=== PATIENT | male | born 1955 | race Caucasian/White ===

== ENCOUNTER 2018-10-15 19:40 | Inpatient (IN) ==
[2018-10-15] MEDS ORDERED: ceFAZolin 2 GM Premix Inj 2 GM/50 ML PIGGYBACK IV.SIG ONE ×2 (20:08→20:30)
[2018-10-15] MEDS ORDERED: Tetanus/Diphtheria Toxoid Adult Vaccine Inj 0.5 ML Vial IM ONE (20:08)
[2018-10-15] MEDS ORDERED: Morphine Sulfate Inj 8 MG/ML Vial IV.PUSH ONE (20:08)
[2018-10-15 20:31] LABS: Baso % (Auto) 0.5 % (0.0-2.0); Eos # (Auto) 0.1 th/mm3 (0.0-0.4); Hematocrit 39.8 % (39.0-51.0); Hemoglobin 13.8 gm/dL (13.0-17.0); Lymph # (Auto) 0.9 th/mm3 (1.0-4.8); Lymph % (Auto) 11.4 % (9.0-44.0); Mean Corpuscular HGB Conc 34.6 % (32.0-36.0); Mean Corpuscular Hemoglobin 31.1 pg (27.0-34.0); Mean Corpuscular Volume 89.8 fL (80.0-100.0); Mean Platelet Volume 7.6 fL (7.0-11.0); Mono # (Auto) 0.4 th/mm3 (0.0-0.9); Mono % (Auto) 5.5 % (0.0-8.0); Neut # (Auto) 6.4 th/mm3 (1.8-7.7); Neut % (Auto) 81.6 % (16.0-70.0); Platelet Count 122 th/mm3 (150-450); Red Blood Count 4.43 mil/mm3 (4.50-5.90); Red Cell Distribution Width 13.9 % (11.6-17.2); White Blood Count 7.8 th/mm3 (4.0-11.0)
[2018-10-15 20:39] LABS: Prothrombin Time 10.4 sec (9.8-11.6)
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
[2018-10-15 20:47] LABS: Calcium 8.6 mg/dL (8.5-10.1); Carbon Dioxide 25.8 meq/L (21.0-32.0); Potassium 3.5 meq/L (3.5-5.1)
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
[2018-10-15] MEDS ORDERED: Acetaminophen 325 MG Tablet PO PRN (21:50)
[2018-10-15] MEDS ORDERED: Bisacodyl 10 MG Supp RECTAL PRN (21:50)
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
[2018-10-15] MEDS ORDERED: Calcium Carbonate 500 MG Tablet PO ONE (22:28)
[2018-10-15] MEDS ORDERED: Magnesium Oxide 400 MG Tablet PO ONE (22:28)
[2018-10-15] MEDS: Sod Chloride 0.9% Inj 1,000 ML IV.CONT SCH (23:38)
[2018-10-15] MEDS: Morphine Inj 4 MG/ML Vial IV.PUSH PRN (23:39)
[2018-10-16] MEDS: Morphine Inj 4 MG/ML Vial IV.PUSH PRN ×3 (03:57→22:08)
[2018-10-16] MEDS ORDERED: HYDROmorphone PF Inj 1 MG/ML Ampul IV.PUSH ONE (04:32)
[2018-10-16] MEDS: Sod Chloride 0.9% Inj 1,000 ML IV.CONT SCH ×3 (08:00→20:00)
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
[2018-10-16 08:41] LABS: Baso % (Auto) 0.8 % (0.0-2.0); Eos # (Auto) 0.2 th/mm3 (0.0-0.4); Eos % (Auto) 2.9 % (0.0-4.0); Hemoglobin 13.3 gm/dL (13.0-17.0); Lymph # (Auto) 1.3 th/mm3 (1.0-4.8); Lymph % (Auto) 23.7 % (9.0-44.0); Mean Corpuscular Hemoglobin 31.6 pg (27.0-34.0); Mean Corpuscular Volume 90.4 fL (80.0-100.0); Mean Platelet Volume 7.8 fL (7.0-11.0); Mono # (Auto) 0.5 th/mm3 (0.0-0.9); Mono % (Auto) 8.7 % (0.0-8.0); Neut # (Auto) 3.5 th/mm3 (1.8-7.7); Neut % (Auto) 63.9 % (16.0-70.0); Platelet Count 117 th/mm3 (150-450); White Blood Count 5.5 th/mm3 (4.0-11.0)
[2018-10-16 09:01] LABS: Albumin 3.8 g/dL (3.4-5.0); Anion Gap 6 meq/L (5-15); Aspartate Aminotransferase 20 U/L (15-37); Blood Urea Nitrogen 15 mg/dL (7-18); Calcium 8.3 mg/dL (8.5-10.1); Carbon Dioxide 26.8 meq/L (21.0-32.0); Chloride 107 meq/L (98-107); Glomerular Filtration Rate 76 mL/min (>89); Glucose,Random 89 mg/dL (74-106); Potassium 3.6 meq/L (3.5-5.1); Sodium 140 meq/L (136-145)
[2018-10-16 09:02] LABS: Alanine Aminotransferase 18 U/L (12-78)
[2018-10-16 09:05] LABS: Alkaline Phosphatase 46 U/L (45-117); Total Protein 6.9 g/dL (6.4-8.2)
[2018-10-16] MEDS: Senna/Docusate Sodium 8.6/50 MG Tablet PO SCH ×2 (09:13→22:10)
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
--- NOTE | 2018-10-16 09:51 | ECG ---
Date Performed: 10/15/2018 Time Performed: 21:21:41 PTAGE: 63 years EKG: Sinus rhythm WITH FIRST DEGREE AV BLOCK ABNORMAL ECG NO PREVIOUS TRACING DOCTOR: Shalom Mendosa Interpretating Date/Time 10/16/2018 09:50:15
[2018-10-16] MEDS ORDERED: fentaNYL Citrate Inj 250 MCG/5 ML Ampul ONE (10:43)
[2018-10-16] MEDS ORDERED: Bupivacaine PF 0.5% Inj 30 ML Vial ONE (11:06)
[2018-10-16] MEDS ORDERED: ceFAZolin Inj 500 MG Vial ONE (11:11)
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
--- NOTE | 2018-10-16 17:15 | XR ---
EXAM DATE: 10/16/2018 5:12 PM EST AGE/SEX: 63 years / Male INDICATIONS: ORIF left hand. CLINICAL DATA: This is the patient's initial encounter. Patient reports that signs and symptoms have been present for 1 day and indicates a pain score of Nonresponsive. MEDICAL/SURGICAL HISTORY: Non-responsive. Non-responsive. [place] [facility] [place] 3[place]. . FINDINGS: There is a orthopedic screw seen through the distal aspect of the fifth metacarpal successfully reduc ing the distal fifth metacarpal fracture. There also appears to be a plate along the dorsal proximal and mid aspect of the fourth metacarpal successfully reducing the proximal fourth metacarpal fracture . CONCLUSION: Successful ORIF. Electronically signed by: Kyrie Cody MD 10/16/2018 5:14 PM EST
[2018-10-16] MEDS: ceFAZolin 2 GM Premix Inj 2 GM/50 ML PIGGYBACK IV.SIG SCH ×2 (19:51→19:52)
[2018-10-17] MEDS: ceFAZolin 2 GM Premix Inj 2 GM/50 ML PIGGYBACK IV.SIG SCH (03:14)
[2018-10-17] MEDS: Sod Chloride 0.9% Inj 1,000 ML IV.CONT SCH ×2 (04:05→14:52)
[2018-10-17 06:14] LABS: Baso % (Auto) 0.1 % (0.0-2.0); Eos # (Auto) 0.1 th/mm3 (0.0-0.4); Eos % (Auto) 0.7 % (0.0-4.0); Hematocrit 36.3 % (39.0-51.0); Hemoglobin 12.4 gm/dL (13.0-17.0); Lymph # (Auto) 1.1 th/mm3 (1.0-4.8); Lymph % (Auto) 14.5 % (9.0-44.0); Mean Corpuscular HGB Conc 34.3 % (32.0-36.0); Mean Corpuscular Hemoglobin 31.4 pg (27.0-34.0); Mean Corpuscular Volume 91.5 fL (80.0-100.0); Mean Platelet Volume 7.8 fL (7.0-11.0); Mono # (Auto) 0.7 th/mm3 (0.0-0.9); Mono % (Auto) 8.5 % (0.0-8.0); Neut % (Auto) 76.2 % (16.0-70.0); Platelet Count 114 th/mm3 (150-450); Red Blood Count 3.97 mil/mm3 (4.50-5.90); Red Cell Distribution Width 13.6 % (11.6-17.2); White Blood Count 7.9 th/mm3 (4.0-11.0)
[2018-10-17 06:37] LABS: Calcium 8.2 mg/dL (8.5-10.1); Carbon Dioxide 27.3 meq/L (21.0-32.0); Potassium 3.6 meq/L (3.5-5.1)
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
[2018-10-17 10:04] VITALS: RESP 18
[2018-10-17] MEDS: Senna/Docusate Sodium 8.6/50 MG Tablet PO SCH (10:04)
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
[2018-10-17] MEDS ORDERED: ceFAZolin 2 GM IV; once IV.SIG ONE (12:00)
[2018-10-17 12:47] VITALS: BP 118/56; PULSE 64; TEMP 97.6; O2SAT 97
== END 2018-10-17 15:51 | disposition home or self-care (01) ==
LOC: NEPC 19:40 → NEDA 21:45 → N06 22:34
PROVIDERS: ADMIT Internal Medicine; ATTEND Internal Medicine